=== PATIENT | male | born 1930 | race Caucasian/White ===

== ENCOUNTER 2017-06-25 05:21 | Day surgery (SDC) | payer MEDICARE, BC ==
[2017-06-24 12:13] LABS: BASOPHILS 0.2 % (0-2); EOSINOPHILS 4.8 % (0-7); HEMATOCRIT 38.8 % (42.0-54.0); IMMATURE GRANULOCYTES 0.3 % (0-5); LYMPHOCYTES 22.9 % (15-50); MCH 30.7 pg (26.0-34.0); MCHC 33.5 g/dL (31.0-37.0); MCV 91.7 fL (80.0-100.0); MEAN PLATELET VOLUME 11.8 fL (7.4-10.4); MONOCYTES 11.2 % (2-11); NEUTROPHILS 60.6 % (40-80); PLATELET COUNT 189 10x3/uL (130-400); RBC 4.23 10x6/uL (4.20-6.10); RDW 13.1 % (11.5-14.5); WBC 5.8 10x3/uL (4.8-10.8)
[2017-06-24 12:18] LABS: APTT 28.8 SECONDS (22.8-39.4); INR 1.04 (0.85-1.17); PROTIME 13.2 SECONDS (11.6-15.0)
[2017-06-24 12:22] LABS: ANION GAP 12.4 mmol/L (8-16); CALCIUM 9.6 mg/dL (8.5-10.1); CARBON DIOXIDE 28.3 mmol/L (21.0-32.0); CREATININE - SERUM 1.2 mg/dL (0.6-1.3); POTASSIUM - SERUM 4.7 mmol/L (3.5-5.1)
[~2017-06-25] VITALS: Ht 177.8 cm; Wt 84.4 kg
--- NOTE | ~2017-06-25 | OP ---
PATIENT NAME: ADDIE SIMEON MEDICAL RECORD: [id number] :34 LOCATION:[facility] ADMISSION DATE: SURGEON: JAKE REYES DO DATE OF OPERATION: 06/25/2017 PROCEDURE PERFORMED: Severe left carpal tunnel release. PREOPERATIVE DIAGNOSIS: Severe left carpal tunnel syndrome. POSTOPERATIVE DIAGNOSIS: Severe left carpal tunnel syndrome. INDICATIONS: Mr. Newsome is an 87-year-old male who presented to my office with nerve conduction studies for his left hand, it showed severe carpal tunnel with distal motor latency in the 8's. I had a long talk with him and asked if he had had a previous carpal tunnel surgery, he did not remember he said, but he does have numbness and tingling in the left first 3 fingers that wakes him up at night. He is tired of hurting him and he wanted something done. I discussed with him that we could do endoscopic carpal tunnel release and it should relieve his pain; however, due to the severity of the compression on the nerve, he may not get his feeling back in that hand. This is understood by the patient and he has consented for the procedure. SURGEON: Jake Reyes DO TOURNIQUET TIME: 13 minutes. COMPLICATIONS: None. DESCRIPTION OF PROCEDURE: The patient was taken to the operative suite, laid in supine position. Left upper extremity was prepped and draped in sterile fashion. A timeout was performed, everyone was in agreement of correct side, site, and the patient. Tourniquet had been placed above the elbow and below the drapes prior to prepping and draping. Once this was done, everyone was in agreeance with correct site, and the patient. The patient had been given Ancef, preoperative antibiotics. Even though he had a PENICILLIN ALLERGY, he did not have a reaction. The left upper extremity was then exsanguinated with an Esmarch and the tourniquet was inflated. A transverse incision was made at the proximal wrist crease and careful dissection with Ragnell down to the carpal tunnel itself. Distal forearm fascia was released proximally and then the carpal tunnel was entered with the dilators. Once the dilators were dilated up to proper size, the sheath was entered having the median nerve below the sheath and the camera was then entered. It fogged up and some anti-fog was placed on the lens. Camera was entered and probed and a rasp was used to clear off the transverse carpal ligament. Once this was done, it was ensured that it was the ligament only that was being cut. The knife was brought in and the transverse carpal ligament was divided save the very proximal portion of it. The fat was herniated into the incision where it had been cut by the blade and the blade was withdrawn as well as the sheath and the camera. I then under loupe magnification put the end of a Ashlie in the wrist and ensured that there was a complete release of the transverse carpal ligament. The median nerve was seen to be intact and the ligament had been divided as seen by the scope. The tourniquet was let down in 13 minutes and 0.5% Marcaine was injected around the wound as well as up into the palm and the incision was closed with 5-0 Monocryl with inverted interrupted fashion. The Steri-Strips, Adaptic, 4 x 4s, and Kerlix were then placed over the wound and Coban was put and lightly dressed OPERATIVE REPORT [id number] ADDIE SIMEON over the Kerlix. The patient was awakened and taken to recovery in stable condition. TRANSINT:[id number] Voice Confirmation ID: [id number] DOCUMENT ID: [id number] JAKE REYES DO at 0753 CC: [id number] DICTATION DATE: 06/25/17 153 [employer] INSPECTOR: 06/25/17 1751 [facility] 06/25/17 [id number] [place] [address]
[~2017-06-25 05:21] MED LIST: BAYER CHEWABLE81 MG PO; COSOPT EYE DROPS5 ML RIGHT EYE; FISH OIL 1,0001 CA1 PO; GLUCOPHAGE1000 MG PO; GLUCOTROL 5 MG T5 MG PO; LIPITOR10 MG PO; PLAVIX75 MG PO; PRINIVIL20 MG PO; PROSCAR5 MG PO; TRAZODONE HCL50 MG PO; TRILIPIX45 MG PO; VITAMIN B-122500 MCG PO; XALATAN 0.0052.5 ML EACH EYE
[2017-06-25 11:51] VITALS: BP 137/58; Ht 177.8 cm; Wt 84.4 kg
[2017-06-25] MEDS ORDERED: DURICEF500 MG PO (15:25)
[2017-06-25] MEDS ORDERED: HYDROCODON-ACE1 EAC7 PO (15:25)
== END 2017-06-25 16:55 | disposition home or self-care (01) ==
LOC: D.OPS 05:21 → D.PAN 15:45 → D.OPS 15:45
PROVIDERS: Anesthesiology
DX: G56.02 Carpal tunnel syndrome, left upper limb (principal); I25.10 Atherosclerotic heart disease of native coronary artery without angina pectoris; E11.9 Type 2 diabetes mellitus without complications; K21.9 Gastro-esophageal reflux disease without esophagitis; Z95.1 Presence of aortocoronary bypass graft; Z01.812 Encounter for preprocedural laboratory examination